=== PATIENT | male | born 1950 | race Caucasian/White ===

== ENCOUNTER 2016-08-16 09:00 | Inpatient (IN) | payer MEDICARE, OTHER ==
[~2016-08-16] VITALS: Ht 177.8 cm; Wt 134.6 kg
--- NOTE | ~2016-08-16 | OR ---
PATIENT'S NAME: JEET LENZ [facility] AGE: 66 Y [address] ROOM: [place] [address] LOCATION: [id number] ADMIT DATE: 09/13/2016 OR/Procedure Report DISCHARGE DATE: FAMILY PHYSICIAN: Arnaud Freire MD ATTENDING PHYSICIAN: KEELEY MARROQUIN SURGEON: Keeley Marroquin MD DECISION ANALYST: Melvin Hernandez CST/MILENA and Keeley Justice. DATE OF PROCEDURE: 09/13/2016 PRE-OP DIAGNOSES: 1. Degenerative joint disease right knee. 2. Obesity (5 feet 10 inches tall and 296 pounds). 3. Patella infera. POST-OP DIAGNOSES: 1. Degenerative joint disease right knee. 2. Obesity (5 feet 10 inches tall and 296 pounds). 3. Patella infera. OPERATION: Right total knee arthroplasty with computer navigation. ANESTHESIA: General endotracheal anesthesia (unsuccessful spinal anesthesia) plus adductor canal block plus periarticular local anesthesia (ropivacaine with epinephrine and Toradol). ESTIMATED BLOOD LOSS: Less than 10 mL. DRAIN: None. SPECIMEN: None. COMPLICATIONS: None. IMPLANT SYSTEM: Fredy Triathlon. Size 6 right posterior stabilized femoral component. Size 5 [place] modular tibial baseplate. 13 mm posterior stabilized size 5 tibial polyethylene insert. 32 mm oval X3 patella component (triple pegged). INDICATIONS FOR SURGERY: Jeet Lenz is a 66-year-old male who presents with advanced right knee degenerative joint disease and associated severely compromised activities of daily living. The patient has decided to proceed with knee replacement after having been thoroughly counseled regarding the associated risks, benefits, and limitations. We have specifically reviewed PATIENT'S NAME: JEET LENZ [facility] AGE: 66 Y [address] ROOM: [place] [address] LOCATION: [facility] ADMIT DATE: 09/13/2016 OR/Procedure Report DISCHARGE DATE: FAMILY PHYSICIAN: Arnaud Freire MD ATTENDING PHYSICIAN: KEELEY MARROQUIN the risks and implications of infection, deep venous thrombosis, pulmonary embolism, mortality, neurovascular complications, blood transfusion (and associated potential for disease transmission or transfusion reaction), stiffness, instability, mechanical deterioration of the components (due to wear and or loosening), and the potential need for revision. We have also emphasized the importance of active involvement and compliance with post- operative physical therapy as a means of optimizing range of motion and functional recovery. Informed consent has been granted. DESCRIPTION OF PROCEDURE: The patient was positioned supine after administration of anesthesia and prophylactic antibiotics. A well-padded pneumatic tourniquet was placed around the right proximal thigh, and the right lower extremity was prepped and draped with vigilant sterile technique. The patient's name as well as the intended operative side and procedure were confirmed with a verbal time-out involving myself, the circulating nurse, the scrub nurse, and the anesthesiologist. Examination under anesthesia demonstrated a moderate effusion. There were no active skin lesions or masses. There was no erythema. There was no abnormal warmth. Range of motion under anesthesia was from a 10-degree flexion contracture to 130 degrees of flexion. There was no ligamentous insufficiency. The right lower extremity was elevated and exsanguinated with an Esmarch wrap, and the pneumatic tourniquet was inflated to 300 mmHg. The knee was approached through a longitudinal midline incision. A medial parapatellar arthrotomy was performed and the patella was everted. Examination of the joint space demonstrated a moderate amount of benign-appearing translucent synovial fluid. There was a moderate-sized osteophyte at the intercondylar notch. There were no loose bodies. There was no significant active synovitis. The cruciate ligaments were intact. There was extensive complex degenerative tearing involving the posterior 2/3rd of the medial meniscus. The lateral meniscus was normal. There was a moderate-sized osteophyte at the lateral femoral condyle. There were mild grade 3 degenerative changes at the medial half of the lateral tibial plateau. There was a large osteophyte at the medial femoral condyle and a moderate-sized osteophyte at the medial tibial plateau. There was full-thickness loss of articular cartilage involving the posterior medial half of the medial femoral condyle. There was high-grade partial-thickness articular cartilage loss throughout the remainder of the medial femoral condyle. There was a 2 cm diameter region of full- thickness articular cartilage loss at the medial half of the medial tibial plateau. There was extensive grade 3 chondromalacia throughout the remainder of the medial tibial plateau. There were moderate-sized osteophytes at the medial and lateral margins of the femoral trochlea. There was high-grade PATIENT'S NAME: JEET LENZ [facility] AGE: 66 Y [address] ROOM: [id number] [place], [place] [address] LOCATION: [facility] ADMIT DATE: 09/13/2016 OR/Procedure Report DISCHARGE DATE: FAMILY PHYSICIAN: Arnaud Freire MD ATTENDING PHYSICIAN: KEELEY MARROQUIN partial-thickness articular cartilage loss extending across the equator of the patella. There were significant patella infera, (which rendered exposure more complex and time consuming compared to standard exposure). There was high- grade partial-thickness articular cartilage loss involving 80% of the lateral half of the femoral trochlea and 50% of the medial half of the femoral trochlea. Remnants of the menisci and cruciate ligaments were excised. The [email or web address] computer navigation femoral tracker was pinned in place at the distal aspect of the femoral trochlea. Absence of motion between the femur and the tracking device was confirmed manually and visually. Femoral osseous landmarks were obtained in order to calibrate the computer navigation system. Landmarks included the center of rotation of the ipsilateral hip, the center-point of the distal femur, the femoral AP axis, 57 points on the medial femoral condyle articular surface, and 57 points on the lateral femoral condyle articular surface. The [email or web address] computer navigation system was subsequently utilized to position the distal femoral resection block such that the distal femoral resection was performed perfectly perpendicular to the femoral mechanical axis. The distal femoral resection was performed with a PadProof oscillating saw. The [email or web address] computer navigation tibial tracker was pinned in place at the anterior aspect of the tibial plateau. Absence of motion between the tibia and the tracking device was confirmed manually and visually. Tibial osseous landmarks were obtained in order to calibrate the computer navigation system. Landmarks included the center-point of the tibial plateau, the AP tibial axis, 57 points on the medial tibial plateau articular surface, 57 points on the lateral tibial plateau articular surface, the medial malleolus, and the lateral malleolus. The [email or web address] computer navigation system was subsequently utilized to position the proximal tibial resection block such that the proximal tibial resection was performed perfectly perpendicular to the tibial mechanical axis. The proximal tibial resection was performed with a Dr. Jerry's Smooth Move Precision oscillating saw. Perpendicularity of the tibial resection with respect to the tibial shaft axis was reconfirmed by inserting a spacer- block attached to an extramedullary guide magdalena. External rotation of the anterior and posterior femoral resections was set parallel to the epicondylar axis and carefully adjusted in order to create a rectangular flexion gap. The box resection was performed with a reciprocating saw. Anterior and posterior chamfer resections were performed with the oscillating saw. Posterior condyle osteophytes were excised with an osteotome. All other osteophytes were excised with a rongeur. Resection of all remnants of the menisci was reconfirmed. Flexion and extension gaps were confirmed to be symmetric and well balanced with a spacer-block technique. PATIENT'S NAME: JEET LENZ [facility] AGE: 66 Y [address] ROOM: [address] [address] LOCATION: [facility] ADMIT DATE: 09/13/2016 OR/Procedure Report DISCHARGE DATE: FAMILY PHYSICIAN: Arnaud Freire MD ATTENDING PHYSICIAN: KEELEY MARROQUIN The patella resection was performed with an oscillating saw such that the composite thickness of the reconstructed patella was equivalent to the thickness of the [place] patella. Patella tracking was confirmed to be optimal. A limited lateral retinacular release was required in order to optimize patella tracking. All trial components were removed and all prepared osseous surfaces were thoroughly irrigated with pulsatile saline lavage and dried prior to cementing all three components in a single stage using Dr. Jerry's Smooth Move Simplex cement containing pre-mixed tobramycin. All extruded excess cement was removed. The entire joint space was thoroughly inspected and thoroughly irrigated with bacteriostatic pulsatile saline lavage to assure that there was no residual debris of any sort. Final range of motion was from full extension (with no passive hyperextension) degrees of extension to 130 degrees of flexion. Patella tracking was reconfirmed to be optimal. There was excellent anteroposterior stability at 90 degrees of flexion. There was 0 mm of medial lift-off to valgus stress in full extension. There was 1 mm of lateral lift-off to varus stress in full extension. The arthrotomy was closed with multiple simple and [id number] interrupted #1 Vicryl. Subcutaneous tissues were thoroughly re-irrigated with bacteriostatic pulsatile saline lavage. Subcutaneous tissues were re- approximated with simple buried interrupted #0 Vicryl sutures. The skin was closed with simple buried interrupted 2-0 Vicryl sutures followed by surgical michael. The dressing consisted of Xeroform gauze, 4x4 gauze, ABD pads and two 6-inch Roger Wraps. There were no intra-operative complications. MD LIZBETH ELIAS/bj /[id number] d: 09/13/16 1027 t: 09/17/16 1006, OPERATIVE SUMMARY
--- NOTE | ~2016-08-16 | DS ---
PATIENT'S NAME: JEET [facility] AGE: 66 Y [address] ROOM: [place] [address] LOCATION: [facility] ADMIT DATE: 09/13/2016 Discharge Summary DISCHARGE DATE: 09/15/2016 FAMILY PHYSICIAN: Arnaud Freire MD ATTENDING PHYSICIAN: Keeley Marroquin PRIMARY DIAGNOSIS: Degenerative joint disease of the right knee. SECONDARY DIAGNOSES: 1. Diabetes mellitus type 2. 2. Hypertension. 3. Obstructive sleep apnea with CPAP. 4. Hyperlipidemia. 5. Spinal stenosis. PROCEDURE PERFORMED: Right total knee arthroplasty. HISTORY: The patient is a 66-year-old male, who presents with advanced right knee degenerative joint disease and associated severely compromised activities of daily living. The patient has decided to proceed with total knee arthroplasty after having been thoroughly counseled regarding the risks, benefits, limitations and alternatives. Please refer to the outpatient clinic notes and admission history and physical for this patient. HOSPITAL COURSE: The patient underwent a right total knee arthroplasty on 09/13/2016 without complications. General endotracheal anesthesia plus adductor canal block plus periarticular local anesthesia was utilized. The patient received 24 hours of perioperative prophylactic antibiotics and remained hemodynamically stable, neurovascularly intact throughout the entire hospital course. The postoperative prophylactic deep venous thrombosis prophylaxis consisted of Xarelto, early mobilization and pneumatic compression devices. Daily physical therapy for gait training, transfer training range of motion and quadriceps isometric exercises were received. The patient progressed well in physical therapy. On the date of discharge, 09/15/2016, the incision at the knee was healing well and showed no signs of infection. DISPOSITION: Home. DISCHARGE ACTIVITY: The patient is to bear weight as tolerated with range of motion and quadriceps isometric exercises as instructed. The operative extremity is to be elevated at least 90% of the day. There is to be sterile 4x4 gauze dressings to the incision daily. Dr. Marroquin is to be notified immediately if there is any increased pain, fevers, chills erythema or drainage. PATIENT'S NAME: JEET [facility] AGE: 66 Y [address] ROOM: [place] [address] LOCATION: [facility] ADMIT DATE: 09/13/2016 Discharge Summary DISCHARGE DATE: 09/15/2016 FAMILY PHYSICIAN: Arnaud Freire MD ATTENDING PHYSICIAN: Keeley Marroquin DISCHARGE MEDICATIONS: 1. Xarelto 10 mg 1 tablet p.o. daily x12 days for postoperative DVT prophylaxis. 2. Hydromorphone 2 mg 1 to 2 tablets p.o. every 4 hours p.r.n. for pain. He is then instructed to continue all his other preadmission medications as instructed by his internal medicine doctor. FOLLOWUP: Followup appointment is to be with Dr. Marroquin's office on 09/20/2016 for his initial postoperative evaluation with x-rays of the right knee and suture removal at that time. DUC OSEI PA-C FOR KEELEY MARROQUIN MD SMW/miral /[id number] d: 09/20/16 0557 t: 10/08/16 1202, DISCHARGE SUMMARY
[~2016-08-16 09:00] MED LIST: COLACE100 MG PO; COZAAR100 MG PO; CPAP INH; DILAUDID 2MG(HYD2 MG PO; GLUCOPHAGE1000 MG PO; INVOKANA300 MG PO; JANUMET XR 1001 EACH PO; LASIX40 MG PO; LIPITOR40 MG PO; MIRALAX17 GM PO; MOBIC15 MG PO; NORVASC2.5 MG PO; TOPROL XL100 MG PO; TYLENOL EXTRA500 MG PO; VALIUM5 MG PO; XARELTO10 MG PO
[2016-08-16] MEDS ORDERED: JANUMET XR 1001 EACH PO (16:36)
[2016-08-17] MEDS ORDERED: AMOXICILLIN500 MG PO (09:58)
[2016-09-15] MEDS ORDERED: COLACE100 MG PO (11:51)
[2016-09-15] MEDS ORDERED: MIRALAX17 GM PO (11:53)
[2016-09-15] MEDS ORDERED: XARELTO10 MG PO (11:54)
[2016-09-15] MEDS ORDERED: DILAUDID 2MG(HYD2 MG PO (11:54)
== END 2016-09-15 12:45 | disposition disaster alternative care site (69) | DRG 470 ==
LOC: G3N 09-13 05:11
PROVIDERS: ADMIT Orthopaedic Surgery
PROC: 0SRC0J9 Replacement of Right Knee Joint with Synthetic Substitute, Cemented, Open Approach (ICD-10-PCS; principal; 2016-09-13)
DX: M17.11 Unilateral primary osteoarthritis, right knee (principal); E11.40 Type 2 diabetes mellitus with diabetic neuropathy, unspecified; Z68.41 Body mass index [BMI] 40.0-44.9, adult; G47.33 Obstructive sleep apnea (adult) (pediatric); E66.01 Morbid (severe) obesity due to excess calories; I10 Essential (primary) hypertension; K21.9 Gastro-esophageal reflux disease without esophagitis; E78.5 Hyperlipidemia, unspecified; Z96.652 Presence of left artificial knee joint; Z79.84 Long term (current) use of oral hypoglycemic drugs; Z79.82 Long term (current) use of aspirin; Z79.1 Long term (current) use of non-steroidal anti-inflammatories (NSAID)
CPT/HCPCS: C1713; C1751; C1776; J0690; J1100; J1885; J2001; J2250; J2405; J2795; J3010; J7030; J7050